=== PATIENT | female | born 1985 | race Caucasian/White ===

== ENCOUNTER 2019-06-17 13:45 | Emergency (ER) | payer BC, SELFPAY ==
[2019-06-17 14:00] VITALS: BP 153/88; PULSE 114; RESP 14; TEMP 36.7; O2SAT 98
--- NOTE | 2019-06-17 14:08 | ED.URI ---
HPI - URI/Sore Throat General Chief Complaint: Upper Respiratory Infection Stated Complaint: Congestion/Lab Recheck Time Seen by Provider: 06/17/19 14:08 Source: patient and RN notes reviewed Mode of arrival: ambulatory Limitations: no limitations History of Present Illness HPI Narrative: 34-year-old female presents with concern for cough. She also has a copy of a urinalysis she had during a work physical and she would like to have reviewed. She denies any dysuria, hematuria, frequency, urgency, flank pain, low back pain, fever, malaise. She reports feeling of chest congestion and cough. She denies smoking or vaping. MD elicited complaint: cough Related Data Allergies Allergy/AdvReac Type Severity Reaction Status Date / Time latex Allergy Intermediate RASH, Verified 01/10/19 18:11 SWELLING Penicillins Allergy Intermediate SWELLING, Verified 01/10/19 18:11 HIVES Review of Systems Review of Systems: Narrative: CONSTITUTIONAL: Denies malaise, chills, sweats, or fever. EYES: Denies visual changes, redness, or discharge. ENT: Denies rhinorrhea, congestion, sinus pain, otalgia and sore throat. CARDIOVASCULAR: Denies chest pain, palpitations, or edema. RESPIRATORY: Reports cough, chest congestion. Denies dyspnea. GASTROINTESTINAL: Denies abdominal pain, nausea, vomiting, diarrhea : Denies dysuria, hematuria, frequency, urgency, abnormal vaginal discharge, flank pain SKIN: Denies rash or itching. MUSCULOSKELETAL: Denies myalgia. NEUROLOGIC: Denies headache. All systems reviewed & are unremarkable except as noted in HPI and below PMFSH Comments At time of signature, agree with nursing past medical, surgical, social and family history. There is no relevant family history pertinent to the presenting complaint Exam Narrative: Exam Narrative: GENERAL: Well-appearing, well-nourished, and in no acute distress. HEAD: Normocephalic EYES: PERRLA, conjunctivae clear ENT: Nares clear, turbinates erythematous, clear discharge. Mucous membranes moist. TM pearly chow with sharp light reflex bilaterally; no tragal tenderness. Oropharynx not erythematous without lesions. Tonsils not enlarged and without exudate, no drooling, no hoarseness, no trismus, uvula midline. NECK: Supple. No lymphadenopathy CHEST: Clear to auscultation, breath sounds equal. No wheezing, rhonchi, rales, or stridor. No respiratory distress, speaks in full sentences. HEART: Regular rate and rhythm. No murmur heard. SKIN: Warm, dry, no rash. NEURO: Alert and oriented x3. PSYCH: Normal mood and affect Course Course Emergency Course: Explained to patient that I would be unable to review lab results not done in this clinic. Spoke with patient regarding any symptoms which she denies. Advised patient to find primary care provider for further evaluation. Patient is aware of diagnosis, understands and agrees to treatment plan. Anticipatory guidance given. Patient agrees to follow-up as directed and is aware of reasons to seek care at the emergency department. Portions of this record may have been created with voice recognition software Vital Signs Vital signs: Vital Signs Temperature 98.1 F 06/17/19 14:00 Pulse Rate 114 H 06/17/19 14:00 Respiratory Rate 14 06/17/19 14:00 Blood Pressure 153/88 H 06/17/19 14:00 Pulse Oximetry 98 06/17/19 14:00 Temperature 98.1 F 06/17/19 14:00 Pulse Rate 114 H 06/17/19 14:00 Respiratory Rate 14 06/17/19 14:00 Blood Pressure 153/88 H 06/17/19 14:00 Pulse Oximetry 98 06/17/19 14:00 Reviewed. Patient has been instructed to follow up with her primary care provider within the next week regarding her elevated blood pressure today. MDM - URI/Sore Throat MDM Narrative Medical decision making narrative: Differential diagnosis considered: Strep pharyngitis, allergic rhinitis, upper respiratory tract infection, sinusitis, rhinosinusitis, nasopharyngitis. viral pharyngitis, otitis media, otitis externa, pneumonia,
== END 2019-06-17 14:28 | disposition home or self-care (01) ==
PROVIDERS: Emergency Provider Nurse Practitioner
DX: R05 Cough (principal)
CPT/HCPCS: 99213; G0463

== ENCOUNTER 2020-03-31 11:57 | Emergency (ER) | payer BC, SELFPAY ==
--- NOTE | 2020-03-31 12:05 | ED.FEMALEGU ---
HPI - Female Genitourinary General Chief complaint: Urogenital-Female Stated complaint: poss uti Time Seen by Provider: 03/31/20 12:06 Source: patient and RN notes reviewed History of Present Illness HPI Narrative: Patient is a 34-year-old female who presents the urgent care for complaints of decreased urine, nausea, urgency and frequency. Patient states it started approximately 3 days ago. Patient states she does have intermittent nausea sometimes with periods or when she drinks a lot of soda. Patient states that she has been drinking an influx of soda in the last week. States that she had some mild suprapubic discomfort that improved with Tylenol PM. Denies of any back pain, fever, nausea, vomiting, blood in the urine. No other acute complaints. No acute distress noted. Patient aware of the plan of care. Some parts of this dictation were generated by voice recognition software and may contain typographical and/or grammatical inaccuracies. Related Data Home Medications Medication Instructions Recorded Confirmed No Home Medications 03/31/20 03/31/20 Allergies Allergy/AdvReac Type Severity Reaction Status Date / Time latex Allergy Intermediate RASH, Verified 03/31/20 12:09 SWELLING Penicillins Allergy Intermediate SWELLING, Verified 03/31/20 12:09 HIVES Review of Systems Review of Systems: Narrative: CONSTITUTIONAL: Denies fever, chills, or sweats. EYES: Denies visual changes, redness, or discharge. ENT: Denies rhinorrhea, congestion, sore throat, or otalgia. CARDIOVASCULAR: Denies chest pain, palpitations, or edema. RESPIRATORY: Denies cough or dyspnea. GASTROINTESTINAL: Reports of intermittent nausea without vomiting, diarrhea or abdominal pain GENITOURINARY: Reports of urinary frequency, urgency, decreased output and mild suprapubic pressure SKIN: Denies rash or itching. MUSCULOSKELETAL: Denies back pain, joint pain, or myalgia. NEUROLOGIC: Denies headache, numbness, or weakness. All other systems reviewed are negative, except as documented in HPI. PMFSH Comments At the time of my signature, I reviewed and agree with the nursing past medical, surgical, social, and family history. There is no relevant family history pertinent to the patient complaint. Exam Narrative: Exam Narrative: GENERAL: This is a well-nourished, well-developed patient, in no apparent distress. HEAD: normocephalic, atraumatic. EYES: PERRL. Sclera clear/white. Vision is grossly intact. EARS: External ears normal NOSE: External nose normal with no obvious nasal discharge, nares without redness, no rhinorrhea. THROAT: Mucous membranes moist GASTROINTESTINAL: Abdomen soft, non-tender, nondistended. Bowel sounds are active. SKIN: warm, intact with no suspicious lesions or rash, good texture and turgor. NEURO: awake, alert, and oriented to person, place and time. There were no obvious focal neurologic abnormalities. EXTREMITIES: No clubbing, cyanosis, or edema. BACK: Negative bilateral CVA tenderness Course Vital Signs Vital signs: Vital Signs Temperature 99.3 F 03/31/20 12:07 Pulse Rate 96 03/31/20 12:07 Respiratory Rate 18 03/31/20 12:07 Blood Pressure 150/90 H 03/31/20 12:07 Pulse Oximetry 98 03/31/20 12:07 Temperature 99.3 F 03/31/20 12:12 Pulse Rate 96 03/31/20 12:12 Respiratory Rate 18 03/31/20 12:12 Blood Pressure 150/90 H 03/31/20 12:12 Pulse Oximetry 98 03/31/20 12:12 Reviewed-patient is informed that they may have pre-hypertension or hypertension based on a blood pressure reading in the department. I recommend the patient call the primary care provider listed on their discharge instructions or a physician of their choice this week to arrange follow-up for further evaluation of possible pre-hypertension or hypertension. MDM - Female Genitourinary MDM Narrative Medical decision making narrative: Reviewed lab results with the patient. She is aware that was negative. Urine cl
[2020-03-31 12:07] VITALS: BP 150/90; PULSE 96; RESP 18; TEMP 37.4; O2SAT 98
[2020-03-31 12:12] VITALS: BP 150/90; PULSE 96; RESP 18; TEMP 37.4; O2SAT 98
== END 2020-03-31 12:30 | disposition home or self-care (01) ==
PROVIDERS: Emergency Provider Nurse Practitioner Family
DX: R35.0 Frequency of micturition (principal); R03.0 Elevated blood-pressure reading, without diagnosis of hypertension
CPT/HCPCS: 81003; 81025; 87086; 99213; G0463

== ENCOUNTER 2020-09-07 15:03 | Emergency (ER) | payer BC, SELFPAY ==
--- NOTE | 2020-09-07 15:07 | ED.DENTAL ---
HPI - Dental/Oral General Chief complaint: Dental/Oral Stated complaint: tooth pain Time Seen by Provider: 09/07/20 15:07 Source: patient and RN notes reviewed History of Present Illness HPI Narrative: Patient is a 35-year-old female who presents the urgent care with complaints of upper right dental pain. Patient states that 2 days ago she cracked the back tooth and is now causing her severe pain and some swelling to the right face. Patient states that she is also been having some chills and nausea. States that she is following up with [facility] in the next couple weeks but was unable to be seen. Denies of any fevers, vomiting, bad taste in the mouth. No other acute complaints. Patient states that she is use naproxen, ibuprofen and Tylenol without much relief. No other acute complaints. No acute distress noted. Patient aware of the plan of care. Some parts of this dictation were generated by voice recognition software and may contain typographical and/or grammatical inaccuracies. Related Data Allergies Allergy/AdvReac Type Severity Reaction Status Date / Time latex Allergy Intermediate RASH, Verified 09/07/20 15:12 SWELLING Penicillins Allergy Intermediate SWELLING, Verified 09/07/20 15:12 HIVES Review of Systems Review of Systems: Narrative: CONSTITUTIONAL: Denies fever, chills, or sweats. EYES: Denies visual changes, redness, or discharge. ENT: Denies rhinorrhea, congestion, sore throat, or otalgia. Reports of upper right dental pain and right facial swelling CARDIOVASCULAR: Denies chest pain, palpitations, or edema. RESPIRATORY: Denies cough or dyspnea. GASTROINTESTINAL: Denies abdominal pain, nausea, vomiting, or diarrhea. GENITOURINARY: Denies dysuria or hematuria. SKIN: Denies rash or itching. MUSCULOSKELETAL: Denies back pain, joint pain, or myalgia. NEUROLOGIC: Denies headache, numbness, or weakness. All other systems reviewed are negative, except as documented in HPI. PMFSH Comments At the time of my signature, I reviewed and agree with the nursing past medical, surgical, social, and family history. There is no relevant family history pertinent to the patient complaint. Exam Narrative: Exam Narrative: GENERAL: This is a well-nourished, well-developed patient, in no apparent distress. HEAD: normocephalic, atraumatic. EYES: PERRL. Sclera clear/white. Vision is grossly intact. EARS: External ears normal, auditory canals clear and without drainage, TMs normal without perforation. Hearing grossly intact. NOSE: External nose normal with no obvious nasal discharge, nares without redness, no rhinorrhea. THROAT: Mucous membranes moist DENTAL: Trench mouth. Multiple caries and avulsed teeth at the gumline throughout. Moderate caries and avulsed upper right first molar with surrounding erythema/edema NECK: Neck supple CARDIOVASCULAR: Regular rate and rhythm without murmurs, gallops, or rubs. RESPIRATORY: Clear to auscultation. Breath sounds equal bilaterally. No wheezes, rales, or rhonchi. SKIN: warm, intact with no suspicious lesions or rash, good texture and turgor. NEURO: awake, alert, and oriented to person, place and time. There were no obvious focal neurologic abnormalities. EXTREMITIES: No clubbing, cyanosis, or edema. Course Vital Signs Vital signs: Vital Signs Temperature 99.0 F 09/07/20 15:09 Pulse Rate 95 09/07/20 15:09 Respiratory Rate 20 09/07/20 15:09 Blood Pressure 155/96 H 09/07/20 15:09 Pulse Oximetry 99 09/07/20 15:09 Temperature 99.0 F 09/07/20 15:09 Pulse Rate 95 09/07/20 15:09 Respiratory Rate 20 09/07/20 15:09 Blood Pressure 155/96 H 09/07/20 15:09 Pulse Oximetry 99 09/07/20 15:09 Reviewed-patient is informed that they may have pre-hypertension or hypertension based on a blood pressure reading in the department. I recommend the patient call the primary care provider listed on their discharge instructions or a physician of their choice this week to a
[2020-09-07 15:09] VITALS: BP 155/96; PULSE 95; RESP 20; TEMP 37.2; O2SAT 99
== END 2020-09-07 15:20 | disposition home or self-care (01) ==
PROVIDERS: Emergency Provider Nurse Practitioner Family
DX: K04.7 Periapical abscess without sinus (principal); K02.9 Dental caries, unspecified
CPT/HCPCS: 99213; G0463

== ENCOUNTER 2020-09-20 15:27 | Emergency (ER) | payer BC, SELFPAY ==
[2020-09-20 15:32] VITALS: BP 147/87; PULSE 106; RESP 14; TEMP 37.5; O2SAT 99
[2020-09-20 15:41] VITALS: BP 147/87; PULSE 106; RESP 14; TEMP 37.5; O2SAT 99
--- NOTE | 2020-09-20 16:14 | ED.GENADULT ---
HPI - General Adult General Chief complaint: Skin/Abscess/Foreign Body Stated complaint: Blisters on Back from sunburn Time Seen by Provider: 09/20/20 16:14 Source: patient and RN notes reviewed Mode of arrival: ambulatory Limitations: no limitations History of Present Illness HPI narrative: 35-year-old female presents with complaints of sunburn to back and chest wall for the past 2 days. ?Lilly reports going out on a floating trip, now has painful sunburns with blisters, no drainage. Tylenol last today at 10:00AM and Ibuprofen prior to this visit without relief. ?No loss of mobility. ?No foreign body sensation. Denies fever or chills. ?Denies nausea, vomiting, abdominal pain. Tolerating po liquids well. ?No throat or tongue swelling. LMP 3 weeks ago. Remains active. ?The patient reports she has not been diagnosed with COVID-19. The patient reports she is not waiting for the results of a COVID-19 lab test. ?The patient reports she does not have weakness, fatigue, myalgia, or facial swelling. ?The patient reports she does not have a new or worsening cough or shortness of breath. Denies chest pain. ?The patient reports she does not have any rhinorrhea, congestion, sore throat, and diarrhea. Denies recent traveling. ?Denies concerns for COVID-19 or exposures. ?At this time, the patient is not suspected of having COVID-19. Some parts of this dictation were generated by voice recognition software and may contain typographical and/or grammatical inaccuracies. Related Data Allergies Allergy/AdvReac Type Severity Reaction Status Date / Time latex Allergy Intermediate RASH, Verified 09/20/20 15:40 SWELLING Penicillins Allergy Intermediate SWELLING, Verified 09/20/20 15:40 HIVES Review of Systems Review of Systems: Narrative: CONSTITUTIONAL: Denies fever, chills, sweats. EYES: Denies visual changes, redness, discharge. ENT: Denies rhinorrhea, congestion, sore throat, otalgia. CARDIOVASCULAR: Denies chest pain, palpitations, edema. RESPIRATORY: Denies dyspnea, wheezing, cough. GASTROINTESTINAL: Denies abdominal pain, nausea, vomiting, diarrhea. GENITOURINARY: Denies dysuria, hematuria, abnormal discharge. SKIN: Denies rash or itching. Sunburns to back and chest with blisters, no drainage. MUSCULOSKELETAL: Denies acute back pain, joint pain, or myalgia. NEUROLOGIC: Denies numbness or focal weakness. PSYCHIATRIC: Denies anxiety or depression. All other systems reviewed are negative, except as documented in HPI and below. [facility] Past Medical History Medical History (Updated 09/21/20 @ 00:00 by Simone Dagarett) No significant past medical history Surgical History Surgical History (Updated 09/20/20 @ 16:25 by HARESH Wall) No significant past surgical history Family History Family History (Updated 09/20/20 @ 16:26 by HARESH Wall) Father Hypertension Mother Acute myocardial infarction, Onset Age: 57 Grandparent Diabetes mellitus Social History Social History (Updated 09/20/20 @ 16:26 by HARESH Wall) Smoking status: Never smoker Tobacco type: cigarettes Second hand tobacco smoke exposure: Yes (significant other) Alcohol intake: current Alcohol use details: occasionally Substance use: never Substance use type: does not use Living arrangements: with family Occupation/Education: occupation Gender identity (if verbalized by the patient): Female Sexual Orientation (if Verbalized by the Patient): Straight or Heterosexual Comments At time of signature, agree with the nurse past medical, surgical, social, and family history. There is no relevant family history pertinent to the presenting complaint. Exam Narrative: Exam Narrative: GENERAL: This is a well-nourished, well-developed patient, in no apparent distress. Talks in full sentences without deficits and ambulates with steady gait without dyspnea. HEAD: Normocephalic, atraumat
== END 2020-09-20 16:43 | disposition home or self-care (01) ==
PROVIDERS: Emergency Provider Nurse Practitioner Family
DX: L55.1 Sunburn of second degree (principal)
CPT/HCPCS: 99213; G0463

== ENCOUNTER 2021-02-23 10:26 | Emergency (ER) | payer BC, SELFPAY ==
[2021-02-23 10:30] VITALS: BP 146/107; PULSE 84; RESP 16; TEMP 37.2; O2SAT 100
--- NOTE | 2021-02-23 10:40 | ED.DENTAL ---
HPI - Dental/Oral General Chief complaint: Skin/Abscess/Foreign Body Stated complaint: possible allergic reaction Time Seen by Provider: 02/23/21 10:49 Source: patient and RN notes reviewed Mode of arrival: ambulatory Limitations: no limitations History of Present Illness HPI Narrative: 35-year-old female presents concern for left upper dental pain and facial swelling. Reports she began having dental pain last night, she took a leftover clindamycin last night and then took another one this morning and noticed since then her face has become swollen. She reports dental pain is improving. She denies any swollen lips, swollen tongue, difficulty swallowing, trouble breathing. She denies any history of allergies to clindamycin. MD Complaint: tooth pain Related Data Allergies Allergy/AdvReac Type Severity Reaction Status Date / Time latex Allergy Intermediate RASH, Verified 09/20/20 15:40 SWELLING Penicillins Allergy Intermediate SWELLING, Verified 09/20/20 15:40 HIVES Review of Systems Review of Systems: CONSTITUTIONAL: Denies malaise, chills, sweats, or fever. EYES: Denies visual changes, redness, or discharge. ENT: Denies rhinorrhea, congestion, sinus pain, otalgia, sore throat, swollen lips, swollen tongue. Reports left upper dental pain, broken tooth, left facial swelling CARDIOVASCULAR: Denies chest pain, palpitations, or edema. RESPIRATORY: Denies cough or dyspnea. SKIN: Denies rash or itching. MUSCULOSKELETAL: Denies myalgia. NEUROLOGIC: Denies numbness, weakness, or headache. All systems reviewed & are unremarkable except as noted in HPI and below PMFSH Past Medical History Medical History (Updated 02/23/21 @ 10:44 by Latanya North NP) No significant past medical history Surgical History Surgical History (Updated 09/20/20 @ 16:25 by HARESH Wall) No significant past surgical history Family History Family History (Updated 09/20/20 @ 16:26 by HARESH Wall) Father Hypertension Mother Acute myocardial infarction, Onset Age: 57 Grandparent Diabetes mellitus Social History Social History (Updated 09/20/20 @ 16:26 by HARESH Wall) Smoking status: Never smoker Tobacco type: cigarettes Second hand tobacco smoke exposure: Yes (significant other) Alcohol intake: current Alcohol use details: occasionally Substance use: never Substance use type: does not use Gender identity (if verbalized by the patient): Female Sexual Orientation (if Verbalized by the Patient): Straight or Heterosexual Comments At time of signature, agree with nursing past medical, surgical, social and family history. There is no relevant family history pertinent to the presenting complaint Exam Narrative: GENERAL: Well-appearing, well-nourished, and in no acute distress. HEAD: Normocephalic, atraumatic. EYES: PERRLA, sclera clear, and EOMI. No nystagmus. ENT: Nares clear. Mucous membranes moist. Oropharynx without erythema or lesions. Tonsils not enlarged and without exudate. Missing teeth, broken teeth, caries, no periapical abscesses noted. Mild left facial swelling noted NECK: Supple. No lymphadenopathy. CHEST: No respiratory distress. Speaks in full sentences. HEART: Regular rate and rhythm. SKIN: Warm, dry, no visible rash. NEURO: Alert and oriented x3. PSYCH: Normal mood and affect Course Course Emergency Course: Patient is aware of diagnosis, understands and agrees to treatment plan. Anticipatory guidance given. Patient agrees to follow-up as directed and is aware of reasons to seek care at the emergency department. Portions of this record may have been created with voice recognition software Vital Signs Vital signs: Vital Signs Temperature 98.9 F 02/23/21 10:30 Pulse Rate 84 02/23/21 10:30 Respiratory Rate 16 02/23/21 10:30 Blood Pressure 146/107 H 02/23/21 10:30 Pulse Oximetry 100 02/23/21 10:30 Temperature
== END 2021-02-23 10:54 | disposition home or self-care (01) ==
PROVIDERS: Emergency Provider Nurse Practitioner
DX: K08.89 Other specified disorders of teeth and supporting structures (principal)
CPT/HCPCS: 99213; G0463

== ENCOUNTER 2021-08-16 11:32 | Emergency (ER) | payer BC, SELFPAY ==
[2021-08-16 11:39] VITALS: BP 170/106; PULSE 79; RESP 16; TEMP 37; O2SAT 99
--- NOTE | 2021-08-16 12:15 | ED.EAR ---
HPI - Ear Problem General Chief complaint: Ear Stated complaint: Ear Pain Time Seen by Provider: 08/16/21 12:00 Source: patient, RN notes reviewed and old records reviewed Mode of arrival: ambulatory Limitations: no limitations History of Present Illness HPI Narrative: 36 year old female who presents to [facility] care with complaints of 4 day history of left ear pain, some sinus drainage, sore throat, reports no acute cough or any shortness of breath. Patient reports that she took a hot bath about 3 days ago and had her ears under water and since then developed her left ear pain and also the sore throat. Patient denies any fevers chills or sweats, reports she has been taking Tylenol and Ibuprofen for her discomfort. MD Complaint: ear pain Location: left ear Duration: constant Severity: moderate Discharge from ear: Reports no Treatment prior to arrival: oral analgesic Related Data Allergies Allergy/AdvReac Type Severity Reaction Status Date / Time latex Allergy Intermediate RASH, Verified 08/16/21 12:06 SWELLING Penicillins Allergy Intermediate SWELLING, Verified 08/16/21 12:06 HIVES Review of Systems Review of Systems: CONSTITUTIONAL: Denies fever, chills, or sweats. EYES: Denies visual changes, redness, or discharge. ENT: Positive for rhinorrhea, congestion, sore throat, left otalgia. CARDIOVASCULAR: Denies chest pain, palpitations, or edema. RESPIRATORY: Denies cough or dyspnea. GASTROINTESTINAL: Denies abdominal pain, nausea, vomiting, or diarrhea. GENITOURINARY: Denies dysuria or hematuria. SKIN: Denies rash or itching. MUSCULOSKELETAL: Denies back pain, joint pain, or myalgia. NEUROLOGIC: Denies headache, numbness, or weakness. PSYCHIATRIC: Denies anxiety or depression. All systems reviewed & are unremarkable except as noted in HPI and below PMFSH Past Medical History Medical History COVID-19 Sinus problem UTI (urinary tract infection) Surgical History Surgical History H/O dilation and curettage Family History Family History Father Hypertension Mother Acute myocardial infarction, Onset Age: 57 Grandparent Diabetes mellitus Social History Social History Smoking status: Never smoker Tobacco type: cigarettes Second hand tobacco smoke exposure: Yes (significant other) Alcohol intake: current Alcohol use details: occasionally Substance use: never Substance use type: does not use Gender identity (if verbalized by the patient): Female Sexual Orientation (if Verbalized by the Patient): Straight or Heterosexual Comments At time of signature, agree with nursing past medical, surgical, social and family history. There is no relevant family history pertinent to the presenting complaint Exam Narrative: GENERAL: Well-appearing, well-nourished, and in no acute distress. HEAD: Normocephalic, atraumatic. EYES: PERRLA and EOMI. ENT: Nares mild redness with clear rhinorrhea no epistaxis. Mucous membranes moist.Right TM normal with good light reflex, Left TM red and bulging and painful, throat with mild redness no lesions exudates or tonsil swelling. NECK: Supple. no lymphadenopathy CHEST: Clear to auscultation. No respiratory distress. no acute cough SAO2 99% on room air HEART: Regular rate and rhythm. No murmur heard. Normal peripheral pulses. ABDOMEN: Soft, nontender, nondistended, normal active bowel sounds. EXTREMITIES: Normal range of motion. No edema. SKIN: Warm, dry, no rash. NEURO: No focal deficits. Alert and oriented x3. Course Course Level of Care: Express Care Visit Vital Signs Vital signs: Vital Signs Temperature 37.0 C 08/16/21 11:39 Pulse Rate 79 08/16/21 11:39 Respiratory Rate 16 08/16/21 11:39 Blood Pressure 170/106 H
[2021-08-16 12:30] VITALS: BP 142/96
[2021-08-16 12:33] VITALS: BP 142/96
== END 2021-08-16 12:30 | disposition home or self-care (01) ==
PROVIDERS: Emergency Provider Registered Nurse
DX: H65.02 Acute serous otitis media, left ear (principal)
CPT/HCPCS: 99213; G0463

== ENCOUNTER 2021-08-20 08:39 | Emergency (ER) | payer BC, SELFPAY ==
[2021-08-20 08:44] VITALS: BP 149/87; PULSE 74; RESP 14; TEMP 36.6; O2SAT 100
--- NOTE | 2021-08-20 08:57 | ED.URI ---
HPI - URI/Sore Throat General Chief Complaint: Upper Respiratory Infection Stated Complaint: Ear Pain/Headache Time Seen by Provider: 08/20/21 08:58 Source: patient and RN notes reviewed Mode of arrival: ambulatory Limitations: no limitations History of Present Illness MD elicited complaint: other (Ear pain) Related Data Allergies Allergy/AdvReac Type Severity Reaction Status Date / Time latex Allergy Intermediate RASH, Verified 08/20/21 09:00 SWELLING Penicillins Allergy Intermediate SWELLING, Verified 08/20/21 09:00 HIVES Review of Systems Review of Systems: CONSTITUTIONAL: Denies malaise, chills, sweats, or fever. EYES: Denies visual changes, redness, or discharge. ENT: Reports rhinorrhea, congestion, ear pain. Denies sinus pain and sore throat. CARDIOVASCULAR: Denies chest pain, palpitations, or edema. RESPIRATORY: Denies cough. Denies dyspnea. GASTROINTESTINAL: Denies abdominal pain, nausea, vomiting, diarrhea SKIN: Denies rash or itching. MUSCULOSKELETAL: Denies myalgia. NEUROLOGIC: Denies headache. All systems reviewed & are unremarkable except as noted in HPI and below PMFSH Past Medical History Medical History COVID-19 Sinus problem UTI (urinary tract infection) Surgical History Surgical History H/O dilation and curettage Family History Family History Father Hypertension Mother Acute myocardial infarction, Onset Age: 57 Grandparent Diabetes mellitus Social History Social History Smoking status: Never smoker Tobacco type: cigarettes Second hand tobacco smoke exposure: Yes (significant other) Alcohol intake: current Alcohol use details: occasionally Substance use: never Substance use type: does not use Gender identity (if verbalized by the patient): Female Sexual Orientation (if Verbalized by the Patient): Straight or Heterosexual Comments At time of signature, agree with nursing past medical, surgical, social and family history. There is no relevant family history pertinent to the presenting complaint Exam Narrative: GENERAL: Well-appearing, well-nourished, and in no acute distress. HEAD: Normocephalic EYES: PERRLA, conjunctivae clear ENT: Nares clear, clear discharge. Mucous membranes moist. TM pearly chow with dull light reflex bilaterally; no tragal tenderness, no erythema or other signs of infection. Oropharynx not erythematous without lesions. Tonsils not enlarged and without exudate, no drooling, no hoarseness, no trismus, uvula midline. NECK: Supple. No lymphadenopathy HEART: Regular rate and rhythm. No murmur heard. SKIN: Warm, dry, no rash. NEURO: Alert and oriented x3. PSYCH: Normal mood and affect Course Course Emergency Course: Patient is aware of diagnosis, understands and agrees to treatment plan. Anticipatory guidance given. Patient agrees to follow-up as directed and is aware of reasons to seek care at the emergency department. Portions of this record may have been created with voice recognition software Level of Care: Express Care Visit Vital Signs Vital signs: Vital Signs Temperature 98 F 08/20/21 08:44 Pulse Rate 74 08/20/21 08:44 Respiratory Rate 14 08/20/21 08:44 Blood Pressure 149/87 H 08/20/21 08:44 Pulse Oximetry 100 08/20/21 08:44 Temperature 98 F 08/20/21 08:44 Pulse Rate 74 08/20/21 08:44 Respiratory Rate 14 08/20/21 08:44 Blood Pressure 149/87 H 08/20/21 08:44 Pulse Oximetry 100 08/20/21 08:44 Reviewed. MDM - URI/Sore Throat MDM Narrative Medical decision making narrative: Differential diagnosis considered: [place] virus, strep pharyngitis, allergic rhinitis, upper respiratory tract infection, sinusitis, rhinosinusitis, nasopharyngitis. viral pharyngi
== END 2021-08-20 09:10 | disposition home or self-care (01) ==
PROVIDERS: Emergency Provider Nurse Practitioner
DX: H69.92 Unspecified Eustachian tube disorder, left ear (principal); Z86.16 Personal history of COVID-19
CPT/HCPCS: 99213; G0463

== ENCOUNTER 2021-10-22 14:03 | Emergency (ER) | payer BC, SELFPAY ==
--- NOTE | 2021-10-22 14:05 | ED.FEMALEGU ---
HPI - Female Genitourinary General Chief complaint: Urogenital-Female Stated complaint: STD Exposured Time Seen by Provider: 10/22/21 14:05 Source: patient and RN notes reviewed History of Present Illness HPI Narrative: Patient is a 36-year-old female who presents the urgent care with complaints of possible STD exposure as well as UTI symptoms. Patient states that for the last couple weeks she has had urinary urgency, frequency and sharp suprapubic pains. Patient states she was then contacted today, via Facebook, that her boyfriend of 3 years was cheating on her. This female was advising her to get STD check . Patient states she did ask her which STD she was diagnosed having, and she was told to find out for herself . Patient denies any pain with sexual intercourse/activity, blood in the urine, fever, nausea or vomiting. Patient has not taken anything [id number] for her possible UTI symptoms. No other acute complaints. No acute distress noted. Patient aware of the plan of care. Some parts of this dictation were generated by voice recognition software and may contain typographical and/or grammatical inaccuracies. Related Data Allergies Allergy/AdvReac Type Severity Reaction Status Date / Time latex Allergy Intermediate RASH, Verified 10/22/21 14:15 SWELLING Penicillins Allergy Intermediate SWELLING, Verified 10/22/21 14:15 HIVES Review of Systems Review of Systems: CONSTITUTIONAL: Denies fever, chills, or sweats. EYES: Denies visual changes, redness, or discharge. ENT: Denies rhinorrhea, congestion, sore throat, or otalgia. CARDIOVASCULAR: Denies chest pain, palpitations, or edema. RESPIRATORY: Denies cough or dyspnea. GASTROINTESTINAL: Denies abdominal pain, nausea, vomiting, or diarrhea. GENITOURINARY: Reports of possible STD exposure, urinary frequency, urgency and suprapubic pressure SKIN: Denies rash or itching. MUSCULOSKELETAL: Denies back pain, joint pain, or myalgia. NEUROLOGIC: Denies headache, numbness, or weakness. All other systems reviewed are negative, except as documented in HPI. [facility] Past Medical History Medical History COVID-19 Sinus problem UTI (urinary tract infection) Surgical History Surgical History H/O dilation and curettage Family History Family History Father Hypertension Mother Acute myocardial infarction, Onset Age: 57 Grandparent Diabetes mellitus Social History Social History Smoking status: Never smoker Tobacco type: cigarettes Second hand tobacco smoke exposure: Yes (significant other) Alcohol intake: current Alcohol use details: occasionally Substance use: never Substance use type: does not use Gender identity (if verbalized by the patient): Female Sexual Orientation (if Verbalized by the Patient): Straight or Heterosexual Comments At the time of my signature, I reviewed and agree with the nursing past medical, surgical, social, and family history. There is no relevant family history pertinent to the patient complaint. Exam Narrative: GENERAL: This is a well-nourished, well-developed patient. Tearful HEAD: normocephalic, atraumatic. EYES: PERRL. Sclera clear/white. Vision is grossly intact. EARS: External ears normal NOSE: External nose normal with no obvious nasal discharge, nares without redness, no rhinorrhea. THROAT: Mucous membranes moist NECK: Neck supple CARDIOVASCULAR: Regular rate and rhythm without murmurs, gallops, or rubs. RESPIRATORY: Clear to auscultation. Breath sounds equal bilaterally. No wheezes, rales, or rhonchi. GASTROINTESTINAL: Abdomen soft, non-tender, nondistended. Bowel sounds are active. SKIN: warm, intact with no suspicious lesions or rash, good texture and turgor.
[2021-10-22 14:08] VITALS: BP 154/94; PULSE 86; RESP 14; TEMP 36.5; O2SAT 99
[2021-10-22 14:16] VITALS: BP 154/94; PULSE 86; RESP 14; TEMP 36.5; O2SAT 99
[2021-10-22] MEDS: cefTRIAXone 1 GM, LIDOCAINE HCL 1% LOCAL INJ 2.1 ML IM (14:43)
== END 2021-10-22 15:03 | disposition home or self-care (01) ==
PROVIDERS: Emergency Provider Nurse Practitioner Family
DX: R35.0 Frequency of micturition (principal); R39.15 Urgency of urination; R10.30 Lower abdominal pain, unspecified; Z86.16 Personal history of COVID-19
CPT/HCPCS: 81003; 87491; 87591; 87661; 96372; 99214; G0463; J0696

== ENCOUNTER 2022-01-08 14:44 | Emergency (ER) | payer BC, SELFPAY ==
--- NOTE | 2022-01-08 14:49 | ED.FEMALEGU ---
HPI - Female Genitourinary General Chief complaint: Urogenital-Female Stated complaint: test Time Seen by Provider: 01/08/22 14:50 History of Present Illness HPI Narrative: Patient is a 36-year-old female who presents the urgent care with complaints of urinary frequency, urgency and left flank pain for the last 4 days. Patient states that she had a positive test yesterday but was concerned that it may not be accurate considering she got it from a gas station. Patient states her last menstrual cycle was on December 05. Patient is requesting a repeat test. Patient denies of any blood in the urine. Denies of any fever, nausea or vomiting. No other acute complaints. No acute distress noted. Patient aware of the plan of care. Some parts of this dictation were generated by voice recognition software and may contain typographical and/or grammatical inaccuracies. Related Data Home Medications Medication Instructions Recorded Confirmed No Home Medications 01/08/22 01/08/22 Allergies Allergy/AdvReac Type Severity Reaction Status Date / Time latex Allergy Intermediate RASH, Verified 01/08/22 15:09 SWELLING Penicillins Allergy Intermediate SWELLING, Verified 01/08/22 15:09 HIVES Review of Systems Review of Systems: CONSTITUTIONAL: Denies fever, chills, or sweats. EYES: Denies visual changes, redness, or discharge. ENT: Denies rhinorrhea, congestion, sore throat, or otalgia. CARDIOVASCULAR: Denies chest pain, palpitations, or edema. RESPIRATORY: Denies cough or dyspnea. GASTROINTESTINAL: Denies abdominal pain, nausea, vomiting, or diarrhea. GENITOURINARY: Reports of urinary frequency, urgency and left flank pain SKIN: Denies rash or itching. MUSCULOSKELETAL: Denies back pain, joint pain, or myalgia. NEUROLOGIC: Denies headache, numbness, or weakness. All other systems reviewed are negative, except as documented in HPI. [facility], [facility] Past Medical History Medical History COVID-19 Sinus problem UTI (urinary tract infection) Surgical History Surgical History H/O dilation and curettage Family History Family History Father Hypertension Mother Acute myocardial infarction, Onset Age: 57 Grandparent Diabetes mellitus Social History Social History Smoking status: Never smoker Tobacco type: cigarettes Second hand tobacco smoke exposure: Yes (significant other) Alcohol intake: current Alcohol use details: occasionally Substance use: never Substance use type: does not use Gender identity (if verbalized by the patient): Female Sexual Orientation (if Verbalized by the Patient): Straight or Heterosexual Comments At the time of my signature, I reviewed and agree with the nursing past medical, surgical, social, and family history. There is no relevant family history pertinent to the patient complaint. Exam Narrative: GENERAL: This is a well-nourished, well-developed patient, in no apparent distress. HEAD: normocephalic, atraumatic. EYES: PERRL. Sclera clear/white. Vision is grossly intact. EARS: External ears normal NOSE: External nose normal with no obvious nasal discharge, nares without redness, no rhinorrhea. THROAT: Mucous membranes moist NECK: Neck supple CARDIOVASCULAR: Regular rate and rhythm without murmurs, gallops, or rubs. RESPIRATORY: Clear to auscultation. Breath sounds equal bilaterally. No wheezes, rales, or rhonchi. GASTROINTESTINAL: Abdomen soft, non-tender, nondistended. SKIN: warm, intact with no suspicious lesions or rash, good texture and turgor. NEURO: awake, alert, and oriented to person, place and time. There were no obvious focal neurologic abnormalities. EXTREMITIES: No clubbing, cyanosis, or edema. BACK
[2022-01-08 14:53] VITALS: BP 135/79; PULSE 100; RESP 20; TEMP 36.8; O2SAT 100
== END 2022-01-08 15:35 | disposition home or self-care (01) ==
PROVIDERS: Emergency Provider Nurse Practitioner Family
DX: Z32.01 Encounter for pregnancy test, result positive (principal); Z86.16 Personal history of COVID-19
CPT/HCPCS: 81003; 81025; 99212; G0463

== ENCOUNTER 2024-01-03 15:21 | Emergency (ER) | payer OTHER, SELFPAY ==
[2024-01-03 15:36] VITALS: BP 151/87; PULSE 82; RESP 20; TEMP 36.8; O2SAT 100
--- NOTE | 2024-01-03 15:56 | ED.EAR ---
HPI - Ear Problem General Chief complaint: Ear Stated complaint: Right ear Time Seen by Provider: 01/03/24 15:56 Source: patient Mode of arrival: ambulatory Limitations: no limitations History of Present Illness HPI Narrative: 38-year-old female presents with complaint of right ear pain for 2 days. No other complaints today. Afebrile. All systems reviewed and negative except as noted above. Related Data Allergies Allergy/AdvReac Type Severity Reaction Status Date / Time latex Allergy Intermediate RASH, Verified 01/08/22 15:09 SWELLING Penicillins Allergy Intermediate SWELLING, Verified 01/08/22 15:09 HIVES diphenhydramine Allergy Rash Verified 01/03/24 15:35 [From Benadryl] Review of Systems Review of Systems: CONSTITUTIONAL: Denies fever, chills, or sweats. EYES: Denies visual changes, redness, or discharge. ENT: Denies rhinorrhea, congestion, sore throat . Reports right ear pain. CARDIOVASCULAR: Denies chest pain, palpitations, or edema. RESPIRATORY: Denies cough or dyspnea. GASTROINTESTINAL: Denies abdominal pain, nausea, vomiting, or diarrhea. GENITOURINARY: Denies dysuria or hematuria. SKIN: Denies rash or itching. MUSCULOSKELETAL: Denies back pain, joint pain, or myalgia. NEUROLOGIC: Denies headache, numbness, or weakness. PSYCHIATRIC: Denies anxiety or depression. All other systems reviewed are negative, except as documented in HPI. [facility] Past Medical History Medical History COVID-19 Sinus problem UTI (urinary tract infection) Surgical History Surgical History H/O dilation and curettage Family History Family History Father Hypertension Mother Acute myocardial infarction, Onset Age: 57 Grandparent Diabetes mellitus Social History Social History Smoking status: Never smoker Tobacco type: cigarettes Second hand tobacco smoke exposure: Yes (significant other) Alcohol intake: current Alcohol use details: occasionally Substance use: never Substance use type: does not use Living arrangements: with family Occupation/Education: occupation Gender identity (if verbalized by the patient): Female Sexual Orientation (if Verbalized by the Patient): Straight or Heterosexual Comments At time of signature, agree with nursing past medical, surgical, social and family history. There is no relevant family history pertinent to the presenting complaint. Exam Narrative: GENERAL: This is a well-nourished, well-developed patient, in no apparent distress. HEAD: normocephalic, atraumatic. EYES: PERRL. Sclera clear/white. Vision is grossly intact. EARS: External ears normal, auditory canals clear and without drainage, Right TM erythematous and retracted. Left TM is normal. No perforation bilaterally. Hearing grossly intact. NOSE: External nose normal with no obvious nasal discharge, nares without redness, no rhinorrhea. THROAT: Mucous membranes moist, posterior pharynx clear. NECK: Neck supple, non-tender without lymphadenopathy, masses or thyromegaly. CARDIOVASCULAR: Regular rate and rhythm without murmurs, gallops, or rubs. RESPIRATORY: Clear to auscultation. Breath sounds equal bilaterally. No wheezes, rales, or rhonchi. SKIN: warm, Dry, intact with no suspicious lesions or rash, good texture and turgor. NEURO: awake, alert, and oriented to person, place and time. There were no obvious focal neurologic abnormalities. EXTREMITIES: No joint tenderness, effusion, or edema noted. Course Course Level of Care: Express Care Visit Vital Signs Vital signs: Vital Signs Temperature 36.8 C 01/03/24 15:36 Pulse Rate 82 01/03/24 15:36 Respiratory Rate 20 01/03/24 15:36 Blood Pressure 151/87 H 01/03/24 15:36 Pu
== END 2024-01-03 16:05 | disposition home or self-care (01) ==
PROVIDERS: Emergency Provider Nurse Practitioner Family; PCP Family Medicine
DX: H66.91 Otitis media, unspecified, right ear (principal); Z86.16 Personal history of COVID-19
CPT/HCPCS: 99213; G0463

== ENCOUNTER 2024-08-30 11:01 | Emergency (ER) | payer OTHER, SELFPAY ==
--- OUTSIDE RECORDS SUMMARY | 2024-08-30 11:03 | XMS_ITS | Clinical Summary ---
Author Organization [address] Address [address] [place] [address] Care Team Providers Care Consular Officer Name Role Phone Rama Farrell MD Primary Care Provider [phone] Allergies Active Allergy Reactions Criticality Noted Date Comments Diphenhydramine Hcl Anaphylaxis High 10/09/2013 Latex Anaphylaxis,Hives High 10/09/2013 Penicillin V Hives Medium 08/07/2022 Medications ibuprofen (ADVIL,MOTRIN) 600 mg tabletIndicatio ns:Cramps Take 1 tablet (600 mg total) by mouth every 6 (six) hours as needed for pain 100 tablet 08/14/2022 Active docusate sodium (Colace) 100 mg capsuleIndicati ons:constipatio n Take 1 capsule (100 mg total) by mouth 2 (two) times a day for 14 days 28 capsule 10/08/2023 Active Active Problems Problem Noted Date Diagnosed Date Localized swelling, mass and lump, unspecified 0 09/27/2023 Assessment & Plan (09/27/2023 9:13 AM CDT): Given the duration of being present for nearly 18 years this is unlikely to represent anything concerning. Given the discomfort it was causing we will set her up for excision. We have discussed postoperative restrictions. She is in understanding of the plan. Preadmission testing will be sent in. Consent to be obtained. Abdominal wall mass 09/27/2023 (normal spontaneous vaginal delivery) 08/12 Positive GBS test 08/11/2022 Pre-eclampsia in third trimester 08/11/2022 Rubella non-immune status, antepartum 08/11/2022 Multigravida of advanced maternal age in third t rimester 08/11/2022 Penicillin allergy 08/11/2022 Anxiety and depression 08/11/2022 Resolved Problems Problem Noted Date Diagnosed Date Resolved Date Encounter for planned induction of labor 08/11/2022 08/12/2022 Immunizations Immunization Administration Dates Next Due MMR 08/14/2022 Surgical History Surgery Date Site/Laterality Comments DILATION AND CURETTAGE OF UTERUS 04/09/2003 - 04/08/2004 Medical History Medical History Date Comments GERD (gastroesophageal reflux disease) Anxiety Family History Medical History Relation Name Comments Hypertension Father Diabetes Maternal Grandmother Hypertension Paternal Grandfather Hypertension Paternal Grandmother Relation Name Status Comments Father Alive Maternal Grandmother Mother Paternal Grandfather Paternal Grandmother Social History Tobacco Use Types Packs/Day Years Used Date Smoking Tobacco: Never Smokeless Tobacco: Never Social Connection and Isolation Panel [NHANES] A nswer Date Recorded In a typical week, how many times do you talk on the phone with family, friends, or neighbors? Three times a week 08/11/2022 How often do you get togethe r with friends or relatives? Three times a week 08/11/2022 How often do you attend chur ch or episcopal services? Never 08/11/2022 Do you belong to any clubs o r organizations such as hindu groups, unions, fraternal or athletic groups, or school groups? No 08/11/2022 How often do you attend meet ings of the clubs or organizations you belong to? Never 08/11/2022 Are you , , di vorced, , never , or living with a partner? 08/11/2022 AUDIT-C Answer Date Recorded Q1: How often do you have a drink containing alc ohol? Monthly or less 10/08/2023 Q2: How many drinks containi ng alcohol do you have on a typical day when you are drinking? 1 or 2 10/08/2023 Q3: How often do you have si x or more drinks on one occasion? Never 10/08/2023 Overall Financial Resource Strain (CARDIA) Answe r Date Recorded How hard is it for you to pa y for the very basics like food, housing, medical care, and heating? Not hard at all 08/11/2022 PHQ-2 Answer Date Recorded PHQ-2 Total Score (If total score is 3 or more points, staff should administer the PHQ-9) 0 08/11/2022 [facility] - Occupational Stress Questionnaire Answer Date Recorded Do you feel stress - tense, restless, nervous, or anxious, or unable to sleep at night because your mind is troubled all the time - these days? Not at all 08/11/2022 Exercise Vital Sign Answer Date Recorde d On average, how many days pe r week do you engage in moderate to strenuous exercise (like a brisk walk)? 3 days 08/11/2022 On average, how many minutes do you engage in exercise at this level? 30 min 08/11/2022 Hunger Vital Sign Answer Date Recorded Within the past 12 months, y ou worried that your food would run out before you got the money to buy more. Never true 08/12/19 23 Within the past 12 months, t he food you bought just didn't last and you didn't have money to get more. Never true 08/11/2022 PRAPARE - Transportation Answer Date Re corded In the past 12 months, has l ack of transportation kept you from medical appointments or from getting medications? No 08/2022 In the past 12 months, has l ack of transportation kept you from meetings, work, or from getting things needed for daily living? No 08/11/2022 Housing Stability Vital Sign Answer Ger e Recorded In the last 12 months, was t here a time when you were not able to pay the mortgage or rent on time? No 08/11/2022 In the last 12 months, how many places have you lived? 1 08/11/2022 In the last 12 months, was t here a time when you did not have a steady place to sleep or slept in a group home (including now)? No 08/11/2022 Personal Safety Answer Date Recorded Have you ever been in or are you currently in a harmful physical or emotional relationship or is someone making you feel afraid or unsafe? Denies 10/08/2023 Comments Unknown Sex and Gender Information Value Date Recorded Sex Assigned at Not on file Legal Sex Female 6:51 AM [employer] Gender Identity Not on file Sexual Orientation Not on file Obstetrics History Para Term AB IAB SAB Ectopic Multiple Livin g Live Births 7 3 2 1 4 1 3 0 0 3 3 Date Outcome GA Total Labor Labor/2nd/3rd Weight Sex Type Anes PTL Kristin A1 A5 Name Clin 003 SAB 006 Term 40w 0d F Vag-F orcep s Livin g 010 36w 0d F Vag-S pont 011 IAB 014 SAB 015 SAB 023 Term 37w 1d 3h 43m 2h 48m/0h 52m/0h 03m 2.456 kg (5 lb 6.6 oz) F Vag-S pont Epidur al N Livin g 8 9 MINE, GIRLA CHIDI power, Isabel ayers MD Complications:None Delivery Location:[facility] Last Filed Vital Signs Vital Sign Reading Time Taken Comments Blood Pressure 134/88 10/08/2023 2:10 PM CDT Pulse 74 10/08/2023 2:10 PM CDT Temperature 36.3 C (97.3 F) 10/08/2023 2:10 PM CDT Respiratory Rate 18 10/08/2023 2:10 PM CDT Oxygen Saturation 98% 10/08/2023 2:10 PM CDT Inhaled Oxygen Concentration - - Weight 71.6 kg (157 lb 14.4 oz) 09/27/2023 8:10 AM CDT Height 157.5 cm (5' 2 ) 09/27/2023 8:10 AM CDT Body Mass Index 28.88 09/27/2023 8:10 AM CDT Plan of Treatment Health Maintenance Due Date Last Done Comments Breast Cancer Screening-Mammogram 1983 Cervical Cancer Screening 1983 Hepatitis C Screening 1983 Varicella Vaccines (1 of 2 - 13+ 2-dose series) 1996 Hepatitis B Screening 2001 Regular Well Visit/Exam 18-64 2001 Depression Screening 08/11/2023 08/10/2022, 08/10/2022, 08/03/2022, Additional history exists Covid-19 Vaccine ( season) 2023 01/29/2021, 01/08/2021 Influenza Vaccine (Season Ended) 2024 DTaP/Tdap/Td Vaccine (2 - Td or Tdap) 06/28/2032 06/28/2022 HPV Vaccines Aged Out No longer eligi ble based on patient's age to complete this topic Pneumococcal vaccine <65 Aged Out No longer eligible based on patient's age to complete this topic Insurance [facility] Advance Directives For more information, please contact: [phone] * Full Code (Latest Code Status on File) Date Activated Date Inactivated Comments 08/12/2022 4:01 PM 08/14/2022 6:56 PM * Full Code Date Activated Date Inactivated Comments 08/11/2022 7:37 AM 08/12/2022 4:01 PM Full CPR in ca se of cardiopulmonary arrest Care Teams Consular Officer Relationship Specialty Start Date End Date Rama Farrell MD [address] [place] [address] PCP - General Obstetrics and Gynecology 02/10/22
--- OUTSIDE RECORDS SUMMARY | 2024-08-30 11:03 | XMS_ITS | Referral Summary ---
Author Organization [facility] [id number] [place] Address [address] [place] [address] Care Team Providers Care Waitress Name Role Phone Rama Farrell MD Primary Care Provider [phone] Allergies Active Allergy Reactions Criticality Noted Date [...] Immunization Administration Dates Next Due MMR 08/14/2022 Social History Tobacco Use Types Packs/Day Years [...] 08/11/2022 How often do you attend chur or jewish services? Never 08/11/2022 Do you belong to any clubs o r organizations such as zoroastrian groups, unions, fraternal or athletic groups, or [...] [facility] - Occupational Stress Questionnaire Answer Date Recorded [...] place to sleep or slept in a assisted (including now)? No 08/11/2022 Personal Safety Answer Date Recorded Have you ever been in or are you currently in a harmful physical or emotional relationship or is someone making you feel afraid or unsafe? Denies 10/08/2023 Comments Unknown Sex and Gender Information Value Date Recorded Sex Assigned at Not on file Legal Sex Female 6:51 AM EVP SALES Gender Identity Not on file Sexual Orientation Not on file Last Filed Vital Signs Vital Sign Reading [...] 09/27/2023 8:10 AM CDT Plan of Treatment Not on file Insurance [facility] Advance Directives For more information, please contact: [phone] * Full Code (Latest Code Status on File) Date Activated Date Inactivated Comments 08/12/2022 4:01 PM 08/14/2022 6:56 PM * Full Code Date Activated Date Inactivated Comments 08/11/2022 7:37 AM 08/12/2022 4:01 PM Full CPR in ca se of cardiopulmonary arrest Care Teams Waitress Relationship Specialty Start Date End Date Rama Farrell MD [address] [place] [address] PCP - General Obstetrics and Gynecology 02/10/22
[2024-08-30 11:07] VITALS: BP 158/103; PULSE 84; RESP 20; TEMP 36.4; O2SAT 100
--- NOTE | 2024-08-30 12:03 | ED.DENTAL ---
HPI - Dental/Oral General Chief complaint: Dental/Oral Stated complaint: Tooth Pain Time Seen by Provider: 08/30/24 11:30 Source: patient and RN notes reviewed Mode of arrival: ambulatory Limitations: no limitations History of Present Illness HPI Narrative: 39-year-old female presents Express Care complaining of possible tooth infection. Patient reports approximately 2 days ago she noticed worsening pain and swelling in her mouth primarily to the left lower gum. Patient reports having bad dental hygiene has been unable to get into a dentist to her due to her insurance provider. Patient also reports feeling pressure on the left side of her face near her jaw. Patient denies any problems opening and closing her jaw. Patient also feels pressure in her left ear. Patient denies any vision changes, blurry vision, headaches, fevers, body aches, chills, swelling or pain under the tongue. Patient patient denies any other symptoms. Patient says she has been taking Tylenol ibuprofen as needed for pain. Related Data Home Medications ?Medication ?Instructions ?Recorded ?Confirmed ?Last Taken ?Type No Home Medications 08/30/24 08/30/24 Unknown History Allergies Allergy/AdvReac Type Severity Reaction Status Date / Time latex Allergy Intermediate RASH, Verified 08/30/24 11:13 SWELLING Penicillins Allergy Intermediate SWELLING, Verified 08/30/24 11:13 HIVES diphenhydramine (From Allergy Rash Verified 08/30/24 11:13 Benadryl) Review of Systems Review of Systems: CONSTITUTIONAL: Denies fever, chills, or sweats. EYES: Denies visual changes, redness, or discharge. ENT: Denies rhinorrhea, congestion, sore throat, trismus, difficulty swallowing. Positive for otalgia MOUTH: Positive for dental pain and swelling. CARDIOVASCULAR: Denies chest pain, palpitations, or edema. RESPIRATORY: Denies cough or dyspnea. GASTROINTESTINAL: Denies abdominal pain, nausea, vomiting, or diarrhea. GENITOURINARY: Denies dysuria or hematuria. SKIN: Denies rash or itching. MUSCULOSKELETAL: Denies back pain, joint pain, or myalgia. NEUROLOGIC: Denies headache, numbness, or weakness. PSYCHIATRIC: Denies anxiety or depression. All other systems reviewed are negative, except as documented in HPI. [facility] Past Medical History Medical History COVID-19 Sinus problem UTI (urinary tract infection) Surgical History Surgical History H/O dilation and curettage Family History Family History Father Hypertension Mother Acute myocardial infarction, Onset Age: 57 Grandparent Diabetes mellitus Social History Social History Smoking status: Never smoker Tobacco type: cigarettes Second hand tobacco smoke exposure: Yes (significant other) Alcohol intake: current Alcohol use details: occasionally Substance use: never Substance use type: does not use Living arrangements: with family Occupation/Education: occupation Gender identity (if verbalized by the patient): Female Sexual Orientation (if Verbalized by the Patient): Straight or Heterosexual Comments At the time of my signature, I reviewed and agree with the nursing past medical, surgical, social, and family history. There is no relevant family history pertinent to the patient complaint. Exam Narrative: GENERAL: This is a well-nourished, well-developed adult, in no apparent distress. They are non ill-appearing, nontoxic appearing. HEAD: normocephalic, atraumatic. EYES: Sclera clear/white. Conjunctiva normal. Vision is grossly intact. Extraocular movements intact. Pupils PERRLA. No nystagmus. EARS: External ears normal, no redness, swelling, tenderness behind the auricle of the ear. Auditory canals clear and without drainage, TMs normal without perforation. Hearing grossly intact. NOSE: External nose normal with no obvious nasal discharge, nasal turbinates without redness, no rhinorrhea. OROPHARYNX: Gross amount of missing teeth. Gross dental decay present. Gingivitis throughout the patient's comes. There is erythema and swelling near the 2nd molar to the left lower gum. It is tender to palpate. No area of fluctuance or induration. Tongue is normal. There is no swelling, redness, or tenderness to palpation under the tongue. THROAT: Mucous membranes moist, posterior pharynx clear, without erythema or swelling. Uvula midline. No trismus. NECK: Neck supple, non-tender without lymphadenopathy, masses or thyromegaly. CARDIOVASCULAR: Regular rate and rhythm RESPIRATORY: Respiratory rate normal, respiratory effort nonlabored, no respiratory distress SKIN: warm, Dry, intact with no suspicious lesions or rash, good texture and turgor. NEURO: awake, alert, and oriented to person, place and time. There were no obvious focal neurologic abnormalities. EXTREMITIES: No joint tenderness, effusion, or edema noted. Course Course Emergency Course: Portions of this record may have been created with voice recognition software Level of Care: Express Care Visit Vital Signs Vital signs: Vital Signs Temperature 97.5 F L 08/30/24 11:07 Pulse Rate 84 08/30/24 11:07 Respiratory Rate 20 08/30/24 11:07 Blood Pressure 158/103 H 08/30/24 11:07 Pulse Oximetry 100 08/30/24 11:07 Oxygen Delivery Room Air 08/30/24 11:07 Temperature 97.5 F L 08/30/24 11:07 Pulse Rate 84 08/30/24 11:07 Respiratory Rate 20 08/30/24 11:07 Blood Pressure 158/103 H 08/30/24 11:07 Pulse Oximetry 100 08/30/24 11:07 Oxygen Delivery Room Air 08/30/24 11:07 Reviewed MDM - Dental/Oral MDM Narrative Medical decision making narrative: Patient is likely developing a dental abscess to the left lower mouth near the 2nd molar. Patient has gross tooth decay in gingivitis present. Advised patient to have prompt follow-up with dentist as soon as possible. Patient was given a list a dentist near the area. Patient has an allergy to penicillins, and empirically with clindamycin. Will also prescribe viscous lidocaine as needed for pain. Discussed physical exam findings. Advised supportive measures and signs/symptoms to go to the ER. Pt is appropriate for outpt treatment and f/u. Differential Diagnosis Differential diagnosis: Likely gingival abscess, dental caries and dental abscess Critical Care Time Critical Care Time Critical Care Time: No Discharge Plan Discharge Clinical Impression: Dental abscess Patient Disposition: Home Condition: Stable Instructions: Antibiotic Form, Dental Abscess (ED) Additional Instructions: Take the antibiotics as directed. You may alternate Tylenol and ibuprofen as needed for pain. You may use viscous lidocaine as needed for pain in your mouth. Use a Q-tip and apply directly to the affected area. [place] your teeth and floss at least 2 times a day. You may use mouthwash after each brushing as well. Follow-up with dentist as soon as possible. If you develop worsening swelling, fevers, difficulty swallowing or breathing, difficulty opening her jaw, swelling under the tongue, or any other concerns please go to the ER immediately. Patient Language: Khmer Prescriptions: New clindamycin HCl [Cleocin HCl] 150 mg capsule 450 mg PO TID 10 Days Qty: 90 0RF lidocaine HCl [Lidocaine Viscous] 2 % solution 1 applic mucous membrane TID PRN (Reason: pain) Qty: 1 0RF No Action No Home Medications Follow-up/Referrals: Bud,Rama Zavala MD [Primary Care Provider] - Stand Alone Forms: Work/School Release IP Time of Disposition: 11:43
== END 2024-08-30 11:50 | disposition home or self-care (01) ==
PROVIDERS: PCP Family Medicine
DX: K04.7 Periapical abscess without sinus (principal); Z86.16 Personal history of COVID-19
CPT/HCPCS: 99213; G0463

== ENCOUNTER 2024-09-05 09:30 | Emergency (ER) | payer OTHER, SELFPAY ==
[2024-09-05 09:33] VITALS: BP 144/98; PULSE 88; RESP 18; TEMP 36.4; O2SAT 99
--- OUTSIDE RECORDS SUMMARY | 2024-09-05 09:39 | XMS_ITS | Referral Summary ---
Author Organization [facility] [id number] [place] Address [address] [place] [address] Care Team Providers Care Network Systems Engineer Name Role Phone Rama Farrell MD Primary Care Provider [phone] Allergies Active Allergy Reactions Criticality Noted Date [...] How often do you attend chur or jew services? Never 08/11/2022 Do you belong to any clubs o r organizations such as jewish groups, unions, fraternal or athletic groups, or [...] staff should administer the PHQ-9) 0 08/11/2022 [facility] - Occupational Stress [...] place to sleep or slept in a nursing home (including now)? No 08/11/2022 Personal Safety Answer Date Recorded Have you ever been in or are you currently in a harmful physical or emotional relationship or is someone making you feel afraid or unsafe? 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 Gender Identity Not on file Sexual Orientation [...] 8:10 AM CDT Height 157.5 cm (5' 2) 09/27/2023 8:10 AM CDT Body Mass Index 28.88 09/27/2023 8:10 AM CDT Plan of Treatment Not on file Insurance [facility] Advance Directives For more information, please contact: [phone] * Full Code (Latest Code Status on File) Date Activated Date Inactivated Comments 08/12/2022 4:01 PM 08/14/2022 6:56 PM * Full Code Date Activated Date Inactivated Comments 08/11/2022 7:37 AM 08/12/2022 4:01 PM Full CPR in ca se of cardiopulmonary arrest Care Teams Network Systems Engineer Relationship Specialty Start Date End Date Rama Farrell MD [address] [place] [address] PCP - General Obstetrics and Gynecology 02/10/22
--- OUTSIDE RECORDS SUMMARY | 2024-09-05 09:39 | XMS_ITS | Clinical Summary ---
Author Organization [address] Address [address] [place] [address] Care Team Providers Care Marketing Intelligence Manager Name Role Phone Rama Farrell MD Primary Care Provider [phone] Allergies Active Allergy Reactions Criticality Noted Date [...] often do you attend chur ch or bahai services? Never 08/11/2022 Do you belong to any clubs o r organizations such as protestant groups, unions, fraternal or athletic groups, or [...] staff should administer the PHQ-9) 0 08/11/2022 [facility] - Occupational Stress Questionnaire Answer Date [...] place to sleep or slept in a intermediate (including now)? No 08/11/2022 Personal Safety Answer Date Recorded Have you ever been in or are you currently in a harmful physical or emotional relationship or is someone making you feel afraid or unsafe? 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 ([facility] Last Filed Vital Signs [...] patient's age to complete this topic Insurance [facility] Advance Directives For more information, please contact: [phone] * Full Code (Latest Code Status on File) Date Activated Date Inactivated Comments 08/12/2022 4:01 PM 08/14/2022 6:56 PM * Full Code Date Activated Date Inactivated Comments 08/11/2022 7:37 AM 08/12/2022 4:01 PM Full CPR in ca se of cardiopulmonary arrest Care Teams Marketing Intelligence Manager Relationship Specialty Start Date End Date Rama Farrell MD [address] [place] [address] PCP - General Obstetrics and Gynecology 02/10/22
--- NOTE | 2024-09-05 09:49 | ED.EYEPROB ---
HPI - Eye Problem General Chief complaint: Eye Problems Stated complaint: Eye Pain/Red Time Seen by Provider: 09/05/24 09:30 Source: patient and RN notes reviewed Mode of arrival: ambulatory Limitations: no limitations History of Present Illness HPI Narrative: 39-year-old female presents Express Care complaining of bilateral eye redness, discharge, itchiness for 2 days. Patient says start her left eye now it is beginning in her right. Patient denies any upper respiratory symptoms. Patient please she has pinkeye. Patient denies any pain in her eyes reports having blurry vision to discharge. Patient says her vision is normal after she wipes her eyes. Patient is now using [id number]. Patient is currently on clindamycin for a dental infection. Related Data Allergies Allergy/AdvReac Type Severity Reaction Status Date / Time latex Allergy Intermediate RASH, Verified 08/30/24 11:13 SWELLING Penicillins Allergy Intermediate SWELLING, Verified 08/30/24 11:13 HIVES diphenhydramine (From Allergy Rash Verified 08/30/24 11:13 Benadryl) Review of Systems Review of Systems: CONSTITUTIONAL: Denies fever, chills, or sweats. EYES: Denies visual changes, and pain. Positive for blurry vision, redness, and discharge. ENT: Denies rhinorrhea, congestion, sore throat, or otalgia. CARDIOVASCULAR: Denies chest pain, palpitations, or edema. RESPIRATORY: Denies cough or dyspnea. GASTROINTESTINAL: Denies abdominal pain, nausea, vomiting, or diarrhea. GENITOURINARY: Denies dysuria or hematuria. SKIN: Denies rash or itching. MUSCULOSKELETAL: Denies back pain, joint pain, or myalgia. NEUROLOGIC: Denies headache, numbness, or weakness. PSYCHIATRIC: Denies anxiety or depression. All other systems reviewed are negative, except as documented in HPI. [facility] Past Medical History Medical History COVID-19 Sinus problem UTI (urinary tract infection) Surgical History Surgical History H/O dilation and curettage Family History Family History Father Hypertension Mother Acute myocardial infarction, Onset Age: 57 Grandparent Diabetes mellitus Social History Social History Smoking status: Never smoker Tobacco type: cigarettes Second hand tobacco smoke exposure: Yes (significant other) Alcohol intake: current Alcohol use details: occasionally Substance use: never Substance use type: does not use Living arrangements: with family Occupation/Education: occupation Gender identity (if verbalized by the patient): Female Sexual Orientation (if Verbalized by the Patient): Straight or Heterosexual Comments At the time of my signature, I reviewed and agree with the nursing past medical, surgical, social, and family history. There is no relevant family history pertinent to the patient complaint. Exam Narrative: GENERAL: This is a well-nourished, well-developed adult, in no apparent distress. They are non ill-appearing, nontoxic appearing. HEAD: normocephalic, atraumatic. EYES: Sclera clear/white. Conjunctiva injected bilaterally with exudate present. Vision is grossly intact. Extraocular movements intact. Pupils PERRLA EARS: External ears normal,Hearing grossly intact. NOSE: External nose normal THROAT: Mucous membranes moist NECK: Neck supple CARDIOVASCULAR: Regular rate and rhythm RESPIRATORY: Respiratory rate normal, respiratory effort nonlabored, no respiratory distress SKIN: warm, Dry, intact with no suspicious lesions or rash, good texture and turgor. NEURO: awake, alert, and oriented to person, place and time. There were no obvious focal neurologic abnormalities. EXTREMITIES: No joint tenderness, effusion, or edema noted. Course Course Emergency Course: Portions of this record may have been created with voice recognition software Level of Care: Express Care Visit Vital Signs Vital signs: Vital Signs Temperature 97.5 F L 09/05/24 09:33 Pulse Rate 88 09/05/24 09:33 Respiratory Rate 18 09/05/24 09:33 Blood Pressure 144/98 H 09/05/24 09:33 Pulse Oximetry 99 09/05/24 09:33 Oxygen Delivery Room Air 09/05/24 09:33 Temperature 97.5 F L 09/05/24 09:33 Pulse Rate 88 09/05/24 09:33 Respiratory Rate 18 09/05/24 09:33 Blood Pressure 144/98 H 09/05/24 09:33 Pulse Oximetry 99 09/05/24 09:33 Oxygen Delivery Room Air 09/05/24 09:33 Reviewed MDM - Eye Problem MDM Narrative Medical decision making narrative: Symptoms consistent with bacterial conjunctivitis. Will treat empirically with polymyxin eye drops. Discussed physical exam findings. Advised supportive measures and signs/symptoms to go to the ER. Pt is appropriate for outpt treatment and f/u. Differential Diagnosis Differential diagnosis: Likely corneal abrasion, conjunctivitis and acute iritis Critical Care Time Critical Care Time Critical Care Time: No Discharge Plan Discharge Clinical Impression: Conjunctivitis Qualifiers: Conjunctivitis type: acute Acute conjunctivitis type: bacterial Laterality: bilateral Qualified Code(s): H10.33 - Unspecified acute conjunctivitis, bilateral Patient Disposition: Home Condition: Stable Instructions: Antibiotic Form, Conjunctivitis (ED) Additional Instructions: Your exam today shows Conjunctivitis, You have been given a prescription for eye drops. Use the eye drops as instructed. Do not rub the eye or put anything else in the eye, this can cause abrasions (scratches) on the eye or lead to vision loss. Also it is important not to touch the tube or tip of drops to the eye, as this can cause further infection. Wash your hands very well before instilling the medication. Handwashing can help prevent the spread of disease. Follow up with PCP in 3 you flu I have Return to ER for vision changes, pain or pressure in her eyes, or any other concerns Contact [facility] if you need an Assistant Accounting Manager Patient Language: Namibian Prescriptions: New polymyxin B sulf-trimethoprim 10,000 unit- 1 mg/mL drops 1 drp EACH EYE Q3H 7 Days Qty: 10 0RF Rx Instructions: while awake; do not exceed 6 doses in 24 hours No Action clindamycin HCl [Cleocin HCl] 150 mg capsule 450 mg PO TID 10 Days Qty: 90 0RF lidocaine HCl [Lidocaine Viscous] 2 % solution 1 applic mucous membrane TID PRN (Reason: pain) Qty: 1 0RF Follow-up/Referrals: Anastasia,Rama Zavala MD [Primary Care Provider] - Time of Disposition: 09:45
== END 2024-09-05 09:52 | disposition home or self-care (01) ==
PROVIDERS: PCP Family Medicine
DX: H10.33 Unspecified acute conjunctivitis, bilateral (principal); Z86.16 Personal history of COVID-19
CPT/HCPCS: 99213; G0463

== ENCOUNTER 2024-12-20 10:10 | Emergency (ER) | payer OTHER, SELFPAY ==
[2024-12-20 10:13] VITALS: BP 143/96; PULSE 91; RESP 16; TEMP 36.3; O2SAT 100
[2024-12-20 10:29] LABS: EDUAAPPEAR Clear; EDUABILI Negative (Negative); EDUABLOOD 2+ (Negative); EDUACOLOR1 Yellow; EDUAGLUCOSE Negative (Negative); EDUAKETONE Negative (Negative); EDUALEUKO Negative (Negative); EDUANITRATE Negative (Negative); EDUAPH 6.0; EDUAPROTEIN Negative (Negative); EDUASPGRAVITY 1.025; EDUAUROBILI 0.2
--- NOTE | 2024-12-20 10:57 | ED_ITS ---
HPI - Female Genitourinary General Chief complaint: Urogenital-Female Stated complaint: uti Time Seen by Provider: 12/20/24 10:39 Source: patient and RN notes reviewed Mode of arrival: ambulatory Limitations: no limitations History of Present Illness HPI Narrative: Patient presents today with a 2 day history of urinary frequency, malodorous urine,warm sensation when voiding, and left low back pain. She has tried Tylenol for her symptoms. Currently menstruating. Denies fever. Related Data Allergies Allergy/AdvReac Type Severity Reaction Status Date / Time latex Allergy Intermediate RASH, Verified 12/20/24 10:17 SWELLING Penicillins Allergy Intermediate SWELLING, Verified 12/20/24 10:17 HIVES diphenhydramine (From Allergy Rash Verified 12/20/24 10:17 Benadryl) PMFSH Past Medical History Medical History (Reviewed 12/20/24 @ 10:58 by Yolanda Fournier, [facility] [place], ) COVID-19 Sinus problem UTI (urinary tract infection) Surgical History Surgical History (Reviewed 12/20/24 @ 10:58 by Yolanda Fournier, [facility] [place], ) H/O dilation and curettage Family History Family History (Reviewed 12/20/24 @ 10:58 by Yolanda Fournier, [facility] [place], ) Father Hypertension Mother Acute myocardial infarction, Onset Age: 57 Grandparent Diabetes mellitus Social History Social History (Reviewed 12/20/24 @ 10:58 by Yolanda Fournier, [facility] [place], ) Smoking status: Never smoker Tobacco type: cigarettes Second hand tobacco smoke exposure: Yes (significant other) Alcohol intake: current Alcohol use details: occasionally Substance use: never Substance use type: does not use Living arrangements: with family Occupation/Education: occupation Gender identity (if verbalized by the patient): Female Sexual Orientation (if Verbalized by the Patient): Straight or Heterosexual Comments At time of signature, I have reviewed and agree with nursing past medical, surgical, social and family history unless otherwise noted. Please see nursing chart for further information. There is no relevant family history pertinent to the presenting complaint Exam Narrative: GENERAL: Well-appearing, well-nourished, and in no acute distress. HEAD: Normocephalic, atraumatic. EYES: EOMI. No redness or drainage. Conjunctivae normal. ENT: Mucous membranes pink and moist. NECK: Normal AROM. CHEST: No respiratory distress. Clear to auscultation. HEART: Regular rate and rhythm. No murmur appreciated. ABDOMEN: Soft, nontender, nondistended, normal active bowel sounds. -CVAT MUSCULOSKELETAL: No bony tenderness of the spine. Bilateral lower lumbar is nontender to palpation. EXTREMITIES: Normal range of motion. No edema. SKIN: Warm, dry, no rash. Capillary refill normal. Normal skin turgor. NEURO: No focal deficits. Alert and oriented x3. Gait steady. PSYCH: Normal affect. No signs of depression or anxiety. Course Course Level of Care: Express Care Visit Vital Signs Vital signs: Vital Signs Temperature 97.3 F L 12/20/24 10:13 Pulse Rate 91 12/20/24 10:13 Respiratory Rate 16 12/20/24 10:13 Blood Pressure 143/96 H 12/20/24 10:13 Pulse Oximetry 100 12/20/24 10:13 Oxygen Delivery Room Air 12/20/24 10:13 Temperature 97.3 F L 12/20/24 10:13 Pulse Rate 91 12/20/24 10:13 Respiratory Rate 16 12/20/24 10:13 Blood Pressure 143/96 H 12/20/24 10:13 Pulse Oximetry 100 12/20/24 10:13 Oxygen Delivery Room Air 12/20/24 10:13 Reviewed MDM - Female Genitourinary MDM Narrative Medical decision making narrative: 39-year-old female patient presents today complaining of urinary frequency, malodorous urine, left low back pain x2 days. Believe she has a UTI. Physical exam normal. Urinalysis shows 2+ blood, but patient is currently menstruating. Bedside hcg negative. Patient will be treated with Macrobid while urine culture is pending based on her symptoms. Recommend PCP follow-up if symptoms persist. ED precautions given. Patient agrees with plan. Anticipatory guidance given. Differential Diagnosis Differential diagnosis: Likely urinary tract infection, vaginitis, cystitis and other (Kidney stone, low back strain) Lab Data Attestation: I reviewed the patient's lab results. Lab results narrative: bedside hcg negative Labs: Lab Results 12/20/24 Range/Units 10:26 POC Urine Color Yellow POC Urine Clarity Clear POC Urine pH 6.0 POC Ur Specif Geary 1.025 POC Urine Protein Negative (Negative) POC Ur Glucose (UA) Negative (Negative) POC Urine Ketones Negative (Negative) POC Urine Blood 2+ (Negative) POC Urine Nitrite Negative (Negative) POC Urine Bilirubin Negative (Negative) POC Urine Urobilinogen 0.2 POC U Leukocyte Esteras Negative (Negative) Critical Care Time Critical Care Time Critical Care Time: No Discharge Plan Discharge Clinical Impression: UTI symptoms Patient Disposition: Home Condition: Stable Instructions: Antibiotic Form Additional Instructions: Please take the Macrobid as prescribed. You will be notified by telephone if your antibiotic needs to be changed based on the urine culture results in a few days. As discussed, if symptoms worsen to include severe abdominal or back pain, fever, nausea or vomiting, sweats or chills, please go to the ER immediately for further evaluation and treatment. Your blood pressure was elevated above 120/80 today at Urgent Care. This puts you above the threshold for follow up. Please schedule a followup visit with your personal physician as soon as possible, for further evaluation and treatment. Even blood pressure exceeding 120/80 may indicate pre-hypertension. Patient Language: Lithuanian Prescriptions: New nitrofurantoin monohyd/m-cryst [Macrobid] 100 mg capsule 100 mg PO Q12H 5 Days Qty: 10 0RF Rx Instructions: must administer with a meal/food Follow-up/Referrals: Bud,Rama Zavala MD [Primary Care Provider, [facility]] Time of Disposition: 10:55
[2024-12-20 11:06] LABS: BEDSIDEPREGUCG Negative (Negative)
== END 2024-12-20 11:00 | disposition home or self-care (01) ==
PROVIDERS: Emergency Provider Nurse Practitioner; PCP Family Medicine
DX: R35.0 Frequency of micturition (principal); R82.998 Other abnormal findings in urine; M54.50 Low back pain, unspecified; Z86.16 Personal history of COVID-19
CPT/HCPCS: 81003; 81025; 87086; 99213; G0463

== ENCOUNTER 2025-04-05 12:08 | Emergency (ER) | payer OTHER, SELFPAY ==
--- OUTSIDE RECORDS SUMMARY | 2025-04-05 12:10 | XMS_ITS | Clinical Summary ---
Author Organization [facility] Address [address] [place] [address] Care Team Providers Care Bottle Selector Name Role Phone [facility] Primary Care Provider [phone] Source Comments [facility],non-owned Affiliates and Associated Physician Practices is amultiple site organization consisting of ambulatory clinics and hospital sitesin [place], [place], [place] and [place]. This disclosure is being madepursuant to the Care Everywhere program and may not contain all information available regarding this patient. Last updated 17.[facility] Allergies No known active allergies Medications * Be aware that medications may not be up to date on this document. Alwaysverify current medications with the patient. ibuprofen (MOTRIN) 600 MG tablet Take 1 Tab by mouth every 4 hours as needed for Pain. 60 Tab 0 03/17/2010 Active ferrous sulfate 325 (65 FE) MG tablet Take 1 Tab by mouth daily with breakfast. 30 Tab 3 03/17/2010 Active docusate sodium (COLACE) 100 MG capsule Take 1-2 Caps by mouth nightly as needed for Constipation. 30 Cap 3 03/17/2010 Active w/o Vit A; w/ Fe Fum-FA (-U) 106-1 MG capsule Take 1 Cap by mouth daily. 30 Cap 3 03/17/2010 Active norgestimate-et hinyl estradiol (ORTHO TRI-CYCLEN LO) 0.025 MG tablet Take 1 Tab by mouth daily. Do not start until 2 weeks after delivery 1 Packet 6 03/18/2010 Active Active Problems Problem Noted Date Diagnosed Date History of forceps delivery in prior , currently 03/16/2010 Overview (03/16/2010): At [facility], maternal exhaustion, prolonged pushing per pt. History of dilation and curettage 02/11/2010 Family History Medical History Relation Name Comments Hypertension Father Migraine Father Diabetes Maternal Grandmother TX Maternal Grandmother Hypertension Paternal Grandfather Venous Thromboembolism Paternal Grandfather Diabetes Paternal Grandmother Hypertension Paternal Grandmother TX Paternal Grandmother Relation Name Status Comments Father Alive Maternal Grandfather Maternal Grandmother Mother Alive Paternal Grandfather Alive Paternal Grandmother Social History Tobacco Use Types Packs/Day Years Used Date Smoking Tobacco: Never Alcohol Use Standard Drinks/Week Comments Yes 0 (1 standard drink = 0.6 oz pur e alcohol) Social Comments No Sex and Gender Information Value Date Recorded Sex Assigned at Not on file Legal Sex Female 12:57 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 Gender Identity Not on file Sexual Orientation Not on file Last Filed Vital Signs Vital Sign Reading Time Taken Comments Blood Pressure 130/57 04/12/2011 9:32 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 Pulse 97 04/12/2011 9:32 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 Temperature 36.8 C (98.3 F) 04/12/2011 9:32 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 Respiratory Rate 18 04/12/2011 9:32 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 Oxygen Saturation 100% 04/12/2011 9:32 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 Inhaled Oxygen Concentration - - Weight 51.7 kg (114 lb) 04/12/2011 9:32 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 Height 157.5 cm (5' 2) 04/12/2011 9:32 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 Body Mass Index 20.85 04/12/2011 9:32 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 Plan of Treatment Health Maintenance Due Date Last Done Comments LIPID TESTING 1983 MAMMOGRAM 1983 HIV SCREENING 1998 HEPATITIS C SCREENING 04/18/2001 DTAP/TDAP/TD VACCINES (1 - Tdap) 2002 HEPATITIS B VACCINE (1 of 3 - 19+ 3-dose series) 2002 HPV VACCINE (1 - 3-dose SCDM series) 2010 DEPRESSION SCREENING 04/09/2024 COVID-19 VACCINE (1 - 2024-2 6 season) 2024 INFLUENZA VACCINE (#1) 2024 ZOSTER VACCINE (1 of 2) 2033 HIB VACCINE Aged Out No longer eligi ble based on patient's age to complete this topic MENINGOCOCCAL (Group B) VACC INE SHARED DECISION-MAKING Aged Out No longer eligibl e based on patient's age to complete this topic MENINGOCOCCAL GROUPS A/C/Y/W VACCINE Aged Out No longer eligible b ased on patient's age to complete this topic PNEUMOCOCCAL VACCINE Aged Out No long er eligible based on patient's age to complete this topic Advance Directives * Full Code (Latest Code Status on File) Date Activated Date Inactivated Comments 03/16/2010 8:38 AM 03/19/2010 1:44 AM Care Teams Bottle Selector Relationship Specialty Start Date End Date [address] [address] PCP - General 07/20/14
--- OUTSIDE RECORDS SUMMARY | 2025-04-05 12:10 | XMS_ITS | Clinical Summary ---
Author Organization [address] Address [address] [place] [address] Care Team Providers Care Complex Director Name Role Phone Rama Farrell MD Primary Care Provider [phone] Allergies Active Allergy Reactions Criticality Noted Date [...] Tobacco: Never Social Connection and Isolation Panel Answer Date Recorded In a typical week, how many times do you talk on the phone with family, friends, or neighbors? Three times a week 08/11/2022 How often do you get togethe r with friends or relatives? Three times a week 08/11/2022 How often do you attend chur or baptism services? Never 08/11/2022 Do you belong to any clubs o r organizations such as jehovah's witness groups, unions, fraternal or athletic groups, or [...] staff should administer the PHQ-9) 0 08/11/2022 [facility] - Occupational Stress Questionnaire Answer Date [...] place to sleep or slept in a retirement (including now)? No 08/11/2022 Personal Safety Answer Date Recorded Have you ever been in or are you currently in a harmful physical or emotional relationship or is someone making you feel afraid or unsafe? 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 Gender Identity Not on file Sexual Orientation [...] power, Isabel ayers MD Complications:None Delivery Location:This [facility] Last Filed Vital Signs [...] Cancer Screening 1983 Hepatitis C Screening 1983 Hepatitis B Screening 2001 Regular Well Visit/Exam 18-64 2001 HPV Vaccines (1 - 3-dose SCDM series) 2010 Varicella Vaccines (1 of 2 - 13+ 2-dose series) 09/11/2022 Depression Screening 08/11/2023 08/10/2022, 08/10/2022, 08/03/2022, Additional history exists Covid-19 Vaccine ( season) 2024 01/29/2021, 01/08/2021 Influenza Vaccine (#1) 2024 DTaP/Tdap/Td Vaccine (2 - Td or Tdap) 06/28/2032 06/28/2022 Pneumococcal vaccine <65 Aged Out No longer eligible based on patient's age to complete this topic Insurance [facility] [id number] [place] [address] Advance Directives For more information, please contact: [phone] * Full Code (Latest Code Status on File) Date Activated Date Inactivated Comments 08/12/2022 4:01 PM 08/14/2022 6:56 PM * Full Code Date Activated Date Inactivated Comments 08/11/2022 7:37 AM 08/12/2022 4:01 PM Full CPR in ca se of cardiopulmonary arrest Care Teams Complex Director Relationship Specialty Start Date End Date Rama Farrell MD [address] [place] [address] PCP - General Obstetrics and Gynecology 02/10/22
[2025-04-05 12:12] VITALS: BP 138/101; PULSE 109; RESP 20; TEMP 36.6; O2SAT 100
[2025-04-05 12:36] LABS: EDCOVIDSCREEN Negative (Negative); EDINFLUASCREEN Negative (Negative); EDINFLUBSCREEN Negative (Negative)
--- NOTE | 2025-04-05 12:40 | ED.URI ---
HPI - URI/Sore Throat General Chief Complaint: Upper Respiratory Infection Stated Complaint: chest congestion/nose/cough Time Seen by Provider: 04/05/25 12:30 Source: patient and RN notes reviewed Mode of arrival: ambulatory Limitations: no limitations History of Present Illness HPI Narrative: 39-year-old female presents Express Care complaining of upper respiratory symptoms for 2-3 days. Patient reports cough, congestion, sinus pressure, chest congestion, body aches. Denies any fevers, nausea vomiting, diarrhea, chest pain, difficulty breathing every other symptoms. Patient has been take [id number] cold and flu medication without relief. Related Data Allergies Allergy/AdvReac Type Severity Reaction Status Date / Time latex Allergy Intermediate RASH, Verified 04/05/25 12:16 SWELLING Penicillins Allergy Intermediate SWELLING, Verified 04/05/25 12:16 HIVES diphenhydramine (From Allergy Rash Verified 04/05/25 12:16 Benadryl) Review of Systems Review of Systems: CONSTITUTIONAL: Denies fever, chills, or sweats. Positive for body aches. EYES: Denies visual changes, redness, or discharge. ENT: Denies rhinorrhea, sore throat, or otalgia. Positive for congestion and sinus pressure. CARDIOVASCULAR: Denies chest pain, palpitations, or edema. RESPIRATORY: Positive for cough. Negative for wheezing or dyspnea. GASTROINTESTINAL: Denies abdominal pain, nausea, vomiting, or diarrhea. GENITOURINARY: Denies dysuria or hematuria. SKIN: Denies rash or itching. MUSCULOSKELETAL: Denies back pain, joint pain, or myalgia. NEUROLOGIC: Denies headache, numbness, or weakness. PSYCHIATRIC: Denies anxiety or depression. All other systems reviewed are negative, except as documented in HPI. [facility] Past Medical History Medical History COVID-19 Sinus problem UTI (urinary tract infection) Surgical History Surgical History H/O dilation and curettage Family History Family History Father Hypertension Mother Acute myocardial infarction, Onset Age: 57 Grandparent Diabetes mellitus Social History Social History (Reviewed 12/20/24 @ 10:58 by Yolanda Fournier, CERTIFIED NURSE OPERATING ROOM, DISASSEMBLER PRODUCT) Smoking status: Never smoker Tobacco type: cigarettes Second hand tobacco smoke exposure: Yes (significant other) Alcohol intake: current Alcohol use details: occasionally Substance use: never Substance use type: does not use Living arrangements: with family Occupation/Education: occupation Gender identity (if verbalized by the patient): Female Sexual Orientation (if Verbalized by the Patient): Straight or Heterosexual Comments At the time of my signature, I reviewed and agree with the nursing past medical, surgical, social, and family history. There is no relevant family history pertinent to the patient complaint. Exam Narrative: GENERAL: This is a well-nourished, well-developed adult, in no apparent distress. They are non ill-appearing, nontoxic appearing. HEAD: normocephalic, atraumatic. EYES: Sclera clear/white. Conjunctiva normal. Vision is grossly intact. Extraocular movements intact EARS: External ears normal, auditory canals clear and without drainage, TMs normal without perforation. Hearing grossly intact. NOSE: External nose normal with no obvious nasal discharge, nasal turbinates erythematous, no rhinorrhea. THROAT: Mucous membranes moist, posterior pharynx erythematous with PND. Uvula midline. NECK: Neck supple, non-tender without lymphadenopathy, masses or thyromegaly. CARDIOVASCULAR: Regular rate and rhythm without murmurs, gallops, or rubs. RESPIRATORY: Clear to auscultation. Breath sounds equal bilaterally. No wheezes, rales, or rhonchi. SKIN: warm, Dry, intact with no suspicious lesions or rash, good texture and turgor. NEURO: awake, alert, and oriented to person, place and time. There were no obvious focal neurologic abnormalities. EXTREMITIES: No joint tenderness, effusion, or edema noted. BACK: Nontender without deformity. No CVA tenderness. Course Course Level of Care: Express Care Visit Vital Signs Vital signs: Vital Signs Temperature 97.8 F 04/05/25 12:12 Pulse Rate 109 H 04/05/25 12:12 Respiratory Rate 20 04/05/25 12:12 Blood Pressure 138/101 H 04/05/25 12:12 Pulse Oximetry 100 04/05/25 12:12 Oxygen Delivery Room Air 04/05/25 12:12 Temperature 97.8 F 04/05/25 12:12 Pulse Rate 109 H 04/05/25 12:12 Respiratory Rate 20 04/05/25 12:12 Blood Pressure 138/101 H 04/05/25 12:12 Pulse Oximetry 100 04/05/25 12:12 Oxygen Delivery Room Air 04/05/25 12:12 [facility] Narrative Medical decision making narrative: Negative COVID flu. Patient likely has bronchitis. Will give patient course prednisone Due to severity of symptoms. Discussed physical exam findings. Advised supportive measures and signs/symptoms to go to the ER. Pt is appropriate for outpt treatment and f/u. Differential Diagnosis Differential Diagnosis: Differential diagnostic considerations for upper respiratory infection include upper respiratory infection, croup, otitis media, sinusitis, viral infection, bronchitis, influenza, pharyngitis, strep, uvulitis. Lab Data [facility] Lab Attestation statement: I personally reviewed the patient's lab results. Labs: Lab Results 04/05/25 Range/Units 12:19 POC Influenza A Ag Negative (Negative) POC Influenza B Ag Negative (Negative) POC SARS CoV-2 Ag Negative (Negative) Critical Care Time Critical Care Time Critical Care Time: No Discharge Plan Discharge Clinical Impression: Bronchitis Patient Disposition: Home Condition: Stable Instructions: Antibiotic Form, Acute Bronchitis (ED) Additional Instructions: Rapid COVID and flu were negative today. Avoid crowds until you do not have a fever and symptoms are improved Take the prednisone as directed. Recommend Flonase spray and Zyrtec (or Claritin/Vesna) for congestion. over the counter Cough syrup may cause drowsiness; avoid driving or take it at night time. Tylenol or Motrin as needed for aches, pains or fevers. Follow instructions on the bottle. Symptomatic treatment includes: rest, fluids, and increase humidity of the air at home. Follow up with your primary care provider 3-5 days Go to the ER for worsening symptoms, severe chest pains, breathing problems, vomiting, or serious concerns Patient Language: Sri Lankan Prescriptions: New prednisone 20 mg tablet 40 mg PO DAILY 5 Days Qty: 10 0RF Follow-up/Referrals: Anastasia,Rama Zavala MD [Primary Care Provider, [facility]] Time of Disposition: 12:39
== END 2025-04-05 12:44 | disposition home or self-care (01) ==
PROVIDERS: PCP Family Medicine
DX: J40 Bronchitis, not specified as acute or chronic (principal); Z20.822 Contact with and (suspected) exposure to COVID-19; Z86.16 Personal history of COVID-19
CPT/HCPCS: 87426; 87804; 99213; G0463